=== PATIENT | male | born 1935 | race African-American/Black ===

== ENCOUNTER 2016-11-23 10:26 | Emergency (ER) | payer BC ==
--- NOTE | 2016-11-23 10:50 | EDPHY ---
H & P Stated Complaint: [facility] Fall Time Seen by Provider: 11/23/16 10:49 - Medical/Surgical History Hx Asthma: No Hx Chronic Respiratory Disease: No Hx Diabetes: Yes Hx Cardiac Disease: Yes Hx Renal Disease: Yes Hx Cirrhosis: No Hx Alcoholism: No Hx HIV/AIDS: No Hx Splenectomy or Spleen Trauma: No Other PMH: HTN, SLEEP APNEA, AAA REPAIR, PROSTATE CA, MULTIPLE MYELOMA, BOWEL RESECTION, 04/01 CARDIAC CATH, CATARACTS, 06/07 SUBTOTAL COLECTOMY.GOUT. HIP REPLACEMENT, DM, Hx Acute Kidney Fail (12/07) - Social History Smoking Status: Former smoker Constitutional: Initial Vital Signs Temperature (C) 36.9 C 11/23/16 10:42 Heart Rate 75 11/23/16 10:42 Respiratory Rate 14 11/23/16 10:42 Blood Pressure 117/81 H 11/23/16 10:42 O2 Sat (%) 90 L 11/23/16 10:42 O2 Delivery Mode Room Air Allergies/Adverse Reactions: No Known Allergies Allergy (Verified 04/09/12 22:38) Home Medications: Medication Instructions Recorded Atorvastatin Calcium [Lipitor 10 10 mg PO DAILY 08/10/12 mg (*)] Clopidogrel Bisulfate [Plavix (*)] 75 mg PO DAILY 08/10/12 Ketoconazole 2% [Nizoral 2% Cream 1 josiah TP HS 08/10/12 (*)] Oxybutynin Chloride [Ditropan] 10 mg PO DAILY 08/10/12 Tamsulosin HCl [Flomax 0.4 MG (*)] 0.4 mg PO HS 08/10/12 traMADol [Ultram 50 mg (*)] 50 mg PO QID PRN 08/10/12 Azelastine [Astelin] 1 sprays EACHNARE DAILY 09/27/13 Glucosamine Sulfate 2Kcl 1,500 mg PO DAILY 09/27/13 [Glucosamine] amLODIPine BESYLATE [Norvasc 10 mg 10 mg PO DAILY 09/27/13 (*)] Clonidine HCl 0.4 mg PO BID 12/11/14 Memantine HCl [Namenda Xr] 28 mg PO DAILY 12/11/14 Rivastigmine [Exelon 9.5mg/24 hrs] 1 each TD DAILY 12/11/14 metFORMIN HCL [Glucophage 500 mg 500 mg PO DAILY 12/11/14 (*)] Oxybutynin Chloride [Ditropan] 5 mg PO HS 12/12/14 Medical Decision Making ED Course/Re-evaluation: CHIEF COMPLAINT: Mechanical fall. HISTORY OF PRESENT ILLNESS: The patient is an 81-year-old male with a history of Alzheimer's who presents via EMS after falling onto his right side this morning. He was found lying on the floor by his family after falling. He was found awake and alert. He does not remember falling, probably due to baseline dementia. He denies loss of consciousness. He had difficulty walking after falling due to pain in the bilateral knees and hips. It is unclear why he fell today. REVIEW OF SYSTEMS: A 10 point review of systems was performed and is negative with the exception of the elements mentioned in the history of present illness. PHYSICAL EXAM: HR, BP, O2 Sat, RR. Temp noted General Appearance: Alert, well hydrated, appropriate, and non-toxic appearing. Head: Atraumatic without scalp tenderness or obvious injury Eyes: Pupils equal, round, reactive to light and accommodation, EOMI, no trauma , no injection. Ears: Clear bilaterally, no perforation, normal landmarks Nose: Atraumatic, no rhinorrhea, clear. Throat: There is no erythema or exudates, no lesions, normal tonsils, mucus membranes moist. Neck: Supple, 2+ carotid upstroke, nontender, no lymphadenopathy. Respiratory: No retractions, no distress, no wheezes, and no accessory muscle use. Lungs are clear to auscultation bilaterally. Cardiovascular: Regular rate and rhythm, no murmurs, rubs, or gallops. Bilateral carotid, radial, dorsalis pedis, and posterior tibial pulses intact. Good capillary refill all extremities. Gastrointestinal: Abdomen is soft, nontender, non-distended, no masses, no rebound, no guarding, no peritoneal signs. Musculoskeletal: Normal active ROM of all extremities, atraumatic. Neurological: Alert, appropriate, and interactive. The patient has normal DTRs and non-focal cranial nerves, motor, sensory, and cerebellar exam. Skin: No rashes, good turgor, no nodules on palpation. Past medical history: Hypertension, sleep apnea, AAA repair, prostate cancer, multiple myeloma, cataracts, gout, diabetes, acute kidney failure, bowel resection, colectomy, hip replacement. Past surgical history: Cardiac catheterization Family history:Non-contributory. Social history:Here with family. DIAGNOSTICS/PROCEDURES/CRITICAL CARE TIME: Study: CT of the head, c-spine, pelvis. Indication: Pain. Results: Negative. The study was read by the radiologist, Dr. Moreira. I viewed the images myself on the PACS system. Study: Left shoulder X-ray Indication: Trauma, pain Results: I viewed the images myself on the PACS system. My interpretation of the images is: surgical neck fracture. The radiologist interpretation is pending at the time of this dictation. DIFFERENTIAL DIAGNOSIS: The differential diagnosis includes but is not limited to pelvic fracture, femur fracture, intracranial injury, shoulder sprain, shoulder fracture. MEDICAL DECISION MAKING: This is an 81-year-old male with a history of Alzheimer's presenting via EMS after a fall this morning. He was found awake and alert on the floor by family members. He does not remember any of the accident and is unsure why he fell. He does describe pain in both hips and his left shoulder. I have ordered CTs of the head, cervical spine, and pelvis. An x-ray of the left should was obtained as well. 1316: The CT scans were reported to me negative by Dr. Moreira, radiology. I reassessed the patient at this time and conveyed these results to his family. Patient's stool returns c. Diff negative. - Data Points Laboratory Results: Laboratory Results 11/23/16 11:20 11/23/16 11:20 11/23/16 11/23/16 11/23/16 14:16 11:20 11:20 WBC RBC Hgb Hct MCV MCH MCHC RDW Plt Count MPV Neut % (Auto) Lymph % (Auto) [place] % (Auto) Eos % (Auto) Baso % (Auto) Nucleat RBC Rel Count Absolute Neuts (auto) Absolute Lymphs (auto) Absolute Monos (auto) Absolute Eos (auto) Absolute Basos (auto) Absolute Nucleated RBC Immature Gran % Immature Gran # PT 15.3 SEC H SEC (12.0-15.0) INR 1.21 H (0.83-1.16) APTT 33.3 SEC SEC (23.0-38.0) Sodium Potassium Chloride Carbon Dioxide Anion Gap BUN Creatinine Estimated GFR Glucose Calcium Creatine Kinase 115 IU/L IU/L (0-224) Urine Color NIKO Urine Appearance CLEAR Urine pH 5.0 (5.0-7.5) Ur Specific [place] 1.025 (1.002-1.030) Urine Protein 2+ H (NEGATIVE) Urine Ketones NEGATIVE (NEGATIVE) Urine Blood 1+ H (NEGATIVE) Urine Nitrate NEGATIVE (NEGATIVE) Urine Bilirubin NEGATIVE (NEGATIVE) Urine Urobilinogen NEGATIVE EU EU (0.2-1.0) Ur Leukocyte Esterase NEGATIVE (NEGATIVE) Urine RBC Pending Urine WBC Pending Ur Epithelial Cells Pending Ur Culture Indicated? Pending Urine Glucose NEGATIVE (NEGATIVE) C. difficile Tox (PCR) 11/23/16 11/23/16 11/23/16 11:20 11:20 11:00 WBC 13.94 10^3/uL H 10^3/uL (3.80-9.50) RBC 4.31 10^6/uL L 10^6/uL (4.40-6.38) Hgb 12.6 g/dL L g/dL (13.7-17.5) Hct 40.5 % % (40.0-51.0) MCV 94.0 fL fL (81.5-99.8) MCH 29.2 pg pg (27.9-34.1) MCHC 31.1 g/dL L g/dL (32.4-36.7) RDW 15.9 % H % (11.5-15.2) Plt Count 550 10^3/uL H 10^3/uL (150-400) MPV 10.5 fL fL (8.7-11.7) Neut % (Auto) 80.5 % H % (39.3-74.2) Lymph % (Auto) 8.2 % L % (15.0-45.0) [place] % (Auto) 7.7 % % (4.5-13.0) Eos % (Auto) 2.2 % % (0.6-7.6) Baso % (Auto) 0.9 % % (0.3-1.7) Nucleat RBC Rel Count 0.0 % % (0.0-0.2) Absolute Neuts (auto) 11.22 10^3/uL H 10^3/uL (1.70-6.50) Absolute Lymphs (auto) 1.15 10^3/uL 10^3/uL (1.00-3.00) Absolute Monos (auto) 1.08 10^3/uL H 10^3/uL (0.30-0.80) Absolute Eos (auto) 0.30 10^3/uL 10^3/uL (0.03-0.40) Absolute Basos (auto) 0.12 10^3/uL H 10^3/uL (0.02-0.10) Absolute Nucleated RBC 0.00 10^3/uL 10^3/uL (0-0.01) Immature Gran % 0.5 % % (0.0-1.1) Immature Gran # 0.07 10^3/uL 10^3/uL (0.00-0.10) PT INR APTT Sodium 149 mEq/L H mEq/L (134-144) Potassium 4.0 mEq/L mEq/L (3.5-5.2) Chloride 108 mEq/L mEq/L (97-110) Carbon Dioxide 27 mEq/l mEq/l (22-31) Anion Gap 14 mEq/L mEq/L (8-16) BUN 23 mg/dL mg/dL (7-23) Creatinine 1.5 mg/dL H mg/dL (0.7-1.3) Estimated GFR 45 Glucose 118 mg/dL H mg/dL (70-100) Calcium 10.2 mg/dL mg/dL (8.5-10.4) Creatine Kinase Urine Color Urine Appearance Urine pH Ur Specific [place] Urine Protein Urine Ketones Urine Blood Urine Nitrate Urine Bilirubin Urine Urobilinogen Ur Leukocyte Esterase Urine RBC Urine WBC Ur Epithelial Cells Ur Culture Indicated? Urine Glucose C. difficile Tox (PCR) NEGATIVE (NEGATIVE) Departure - Departure Disposition: Home, Routine, Self-Care Clinical Impression: Contusion, hip Qualifiers: Encounter type: initial encounter Laterality: unspecified laterality Qualified Code(s): S70.00XA - Contusion of unspecified hip, initial encounter Fall Qualifiers: Encounter type: initial encounter Qualified Code(s): W19.XXXA - Unspecified fall, initial encounter Condition: Good Instructions: Hip Contusion (ED), Fall Prevention (ED) Additional Instructions: Follow up with your primary care provider this week for reevaluation. Return to the emergency department for any serious worsening of condition. Referrals: Scott Solo MD [Primary Care Provider] - As per Instructions Report Scribed for: Ben Herring Report Scribed by: En Houston Date of Report: 11/23/16 Time of Report: 13:17
--- NOTE | 2016-11-23 10:58 | CPEKG ---
Heart Rate: 75 RR Interval: 800 P-R Interval: 184 QRSD Interval: 144 QT Interval: 428 QTC Interval: 479 P [place]: 42 QRS [place]: -82 T Wave [place]: 56 EKG Severity - ABNORMAL ECG - EKG Impression: SINUS RHYTHM EKG Impression: MULTIPLE ATRIAL PREMATURE COMPLEXES EKG Impression: RBBB AND LAFB EKG Impression: LEFT VENTRICULAR HYPERTROPHY Electronically Signed By: Ben Herring 23-Nov-2016 14:37:01
[2016-11-23 11:34] LABS: % IMMATURE GRANULYOCYTES 0.5 % (0.0-1.1); ABSOLUTE IMMATURE GRANULOCYTES 0.07 10^3/uL (0.00-0.10); ADD DIFF? NO; ADD MORPH? NO; ADD SCAN? NO; ATYPICAL LYMPHOCYTE FLAG 0 (0-99); FRAGMENT RBC FLAG 20 (0-99); HEMATOCRIT 40.5 % (40.0-51.0); HEMOGLOBIN 12.6 g/dL (13.7-17.5); LEFT SHIFT FLG 0 (0-99); LIPEMIA HEMOLYSIS FLAG 80 (0-99); MEAN CELL HEMOGLOBIN 29.2 pg (27.9-34.1); MEAN CELL HEMOGLOBIN CONCENTR. 31.1 g/dL (32.4-36.7); MEAN PLATELET VOLUME 10.5 fL (8.7-11.7); PLATELET CLUMPS FLAG 0 (0-99); PLATELET COUNT 550 10^3/uL (150-400); RED BLOOD CELL COUNT 4.31 10^6/uL (4.40-6.38); RED CELL DISTRIBUTION WIDTH 15.9 % (11.5-15.2)
[2016-11-23 11:49] LABS: ANION GAP 14 mEq/L (8-16); CALCIUM 10.2 mg/dL (8.5-10.4); CARBON DIOXIDE 27 mEq/l (22-31); CHLORIDE 108 mEq/L (97-110); CREATININE 1.5 mg/dL (0.7-1.3); GLOMERULAR FILTRATION RATE 45; GLUCOSE 118 mg/dL (70-100); SODIUM 149 mEq/L (134-144)
[2016-11-23 12:15] LABS: INR 1.21 (0.83-1.16); PROTIME(PATIENT) 15.3 SEC (12.0-15.0)
[2016-11-23 12:16] LABS: APTT 33.3 SEC (23.0-38.0)
[2016-11-23 14:45] LABS: COLOR AMBER; LEUKOCYTE ESTERASE,URINE NEGATIVE (NEGATIVE); NITRITE,URINE NEGATIVE (NEGATIVE)
[2016-11-23 15:03] LABS: MUCUS TRACE /lpf (NONE-1+)
[2016-11-23 15:50] VITALS: BP 150/87; PULSE 78; RESP 17; TEMP 98.1; O2SAT 96
== END 2016-11-23 15:50 | disposition home or self-care (01) ==
LOC: EDUNIT#
DX: S70.02XA Contusion of left hip, initial encounter (principal); S70.01XA Contusion of right hip, initial encounter; I10 Essential (primary) hypertension; E11.9 Type 2 diabetes mellitus without complications; Z85.46 Personal history of malignant neoplasm of prostate; Z87.891 Personal history of nicotine dependence; W18.39XA Other fall on same level, initial encounter

== ENCOUNTER 2016-11-23 23:33 | Observation (INO) | payer BC ==
[2016-11-24 00:05] LABS: % IMMATURE GRANULYOCYTES 0.6 % (0.0-1.1); ABSOLUTE IMMATURE GRANULOCYTES 0.08 10^3/uL (0.00-0.10); ADD DIFF? NO; ADD MORPH? NO; ADD SCAN? NO; ATYPICAL LYMPHOCYTE FLAG 0 (0-99); FRAGMENT RBC FLAG 10 (0-99); HEMATOCRIT 40.9 % (40.0-51.0); HEMOGLOBIN 12.3 g/dL (13.7-17.5); LEFT SHIFT FLG 0 (0-99); LIPEMIA HEMOLYSIS FLAG 80 (0-99); MEAN CELL HEMOGLOBIN 28.6 pg (27.9-34.1); MEAN CELL HEMOGLOBIN CONCENTR. 30.1 g/dL (32.4-36.7); MEAN CELL VOLUME 95.1 fL (81.5-99.8); MEAN PLATELET VOLUME 10.6 fL (8.7-11.7); PLATELET CLUMPS FLAG 0 (0-99); PLATELET COUNT 542 10^3/uL (150-400); RED CELL DISTRIBUTION WIDTH 15.9 % (11.5-15.2)
--- NOTE | 2016-11-24 00:08 | CPEKG ---
Heart Rate: 65 RR Interval: 923 P-R Interval: 188 QRSD Interval: 142 QT Interval: 444 QTC Interval: 462 P [place]: 58 QRS [place]: -81 T Wave [place]: 43 EKG Severity - ABNORMAL ECG - EKG Impression: SINUS RHYTHM EKG Impression: RBBB AND LAFB EKG Impression: LEFT VENTRICULAR HYPERTROPHY Electronically Signed By: Annamarie Jacinto 25-Nov-2016 07:08:30
[2016-11-24] MEDS ORDERED: NS 1,000 ML IV ONE (00:15)
[2016-11-24 00:17] LABS: ALANINE AMINOTRANSFERASE 37 IU/L (21-72); ALKALINE PHOSPHATASE 90 IU/L (38-126); ANION GAP 12 mEq/L (8-16); ASPARTATE AMINOTRANSFERASE 46 IU/L (17-59); BILIRUBIN,TOTAL 0.8 mg/dL (0.1-1.4); CARBON DIOXIDE 29 mEq/l (22-31); CHLORIDE 110 mEq/L (97-110); CREATININE 1.5 mg/dL (0.7-1.3); GLOMERULAR FILTRATION RATE 45; GLUCOSE 141 mg/dL (70-100); POTASSIUM 4.5 mEq/L (3.5-5.2); SODIUM 151 mEq/L (134-144); TOTAL PROTEIN 7.5 g/dL (6.3-8.2)
[2016-11-24 00:29] LABS: TROPONIN I 0.061 ng/mL (0-0.034)
--- NOTE | 2016-11-24 00:30 | EDPHY ---
H & P Stated Complaint: unwitnessed fall - unk if +loc, hx of dementia, on plavix Time Seen by Provider: 11/23/16 23:46 HPI/ROS: HPI The patient presents with fall which occurred just prior to arrival. He was at home, using his walker and he ran into the dog bed, falling to the ground when his daughter was not looking. He is complaining of pain throughout his right side ever since. The pain is achy and worse with movement. He had another fall earlier today and was seen here. He had CT scan of his head, C-spine, pelvis and x-ray of his right shoulder. These were all unremarkable he was discharged home with his family. He suffers from dementia, he does not usually know the date but knows where he is at. He is able to have some conversations with family members. His family wonders if he has been eating much lately. REVIEW OF SYSTEMS Constitutional: No fever, no chills. Eyes: No discharge. ENT: No sore throat. Cardiovascular: No chest pain, no palpitations. Respiratory: No cough, no shortness of breath. Gastrointestinal: No abdominal pain, no vomiting. Genitourinary: No hematuria. Musculoskeletal: No back pain. Skin: No rashes. Neurological: No headache. PMHx: See below Soc Hx: Lives at home with his family PHYSICAL General Appearance: tired appearing, no distress Eyes: Pupils equal and round no pallor or injection ENT, Mouth: Mucous membranes dry Respiratory: There are no retractions, lungs are clear to auscultation Cardiovascular: Regular rate and rhythm, holosystolic murmur Gastrointestinal: Abdomen is soft and non-tender, no masses, bowel sounds normal Neurological: A&O, moves all extremities Skin: Warm and dry, no rashes Musculoskeletal: Neck is supple non tender, left hip with some bruising and ulcerations which appear old Extremities: symmetrical, full range of motion Psychiatric: Patient is oriented X 1, there is no agitation Source: Patient, Family, EMS - Medical/Surgical History Hx Asthma: No Hx Chronic Respiratory Disease: No Hx Diabetes: Yes Hx Cardiac Disease: Yes Hx Renal Disease: Yes Hx Cirrhosis: No Hx Alcoholism: No Hx HIV/AIDS: No Hx Splenectomy or Spleen Trauma: No Other PMH: HTN, SLEEP APNEA, AAA REPAIR, PROSTATE CA, MULTIPLE MYELOMA, BOWEL RESECTION, 04/01 CARDIAC CATH, CATARACTS, 06/07 SUBTOTAL COLECTOMY.GOUT. HIP REPLACEMENT, DM 2, Hx Acute Kidney Fail (12/07) - Social History Smoking Status: Former smoker Constitutional: Initial Vital Signs Temperature (C) 36.6 C 11/23/16 23:39 Heart Rate 72 11/23/16 23:39 Respiratory Rate 16 11/23/16 23:39 Blood Pressure 117/69 11/23/16 23:39 O2 Sat (%) 93 11/23/16 23:39 O2 Delivery Mode Nasal Cannula O2 (L/minute) 2 Allergies/Adverse Reactions: No Known Allergies Allergy (Verified 11/23/16 23:42) Home Medications: Medication Instructions Recorded Atorvastatin Calcium [Lipitor 10 10 mg PO DAILY 08/10/12 mg (*)] Clopidogrel Bisulfate [Plavix (*)] 75 mg PO DAILY 08/10/12 Ketoconazole 2% [Nizoral 2% Cream 1 josiah TP HS 08/10/12 (*)] Oxybutynin Chloride [Ditropan] 10 mg PO DAILY 08/10/12 Tamsulosin HCl [Flomax 0.4 MG (*)] 0.4 mg PO HS 08/10/12 traMADol [Ultram 50 mg (*)] 50 mg PO QID PRN 08/10/12 Azelastine [Astelin] 1 sprays EACHNARE DAILY 09/27/13 Glucosamine Sulfate 2Kcl 1,500 mg PO DAILY 09/27/13 [Glucosamine] amLODIPine BESYLATE [Norvasc 10 mg 10 mg PO DAILY 09/27/13 (*)] Clonidine HCl 0.4 mg PO BID 12/11/14 Memantine HCl [Namenda Xr] 28 mg PO DAILY 12/11/14 Rivastigmine [Exelon 9.5mg/24 hrs] 1 each TD DAILY 12/11/14 metFORMIN HCL [Glucophage 500 mg 500 mg PO DAILY 12/11/14 (*)] Oxybutynin Chloride [Ditropan] 5 mg PO HS 12/12/14 Allopurinol 100 MG (*) 11/23/16 Medical Decision Making - Diagnostics EKG Interpretation: EKG: Complete interpretation has been separately recorded in the [employer] archive. Summary impression: Right bundle-branch block and left anterior fascicular block unchanged from prior EKG Imaging: Chest x-ray one view shows prominent aortic knob, interpreted by me, radiology interpretation is pending. ED Course/Re-evaluation: The patient was given a L of normal saline in the emergency room. He continued to feel weak and was unable to get out of bed. Labs were checked and did reveal elevated BUN and creatinine which could be a result of dehydration which may be contributing to his symptoms. His other tests were unremarkable. After discussion with the patient's daughters, we decided to admit the patient to the hospital. Does not seem safe for discharge home given these frequent falls. Have discussed the case with the hospitalist Dr. Devante Patel who will come to the emergency room to evaluate the patient. Differential Diagnosis: This is a 81-year-old male with multiple medical problems including dementia who lives at home with his daughter who presents with recurrent falls today. These seem to be mechanical in or not associated with any loss of consciousness. Differential diagnosis includes dehydration, weakness related to underlying electrolyte disturbance, anemia, infection. - Data Points Laboratory Results: Laboratory Results 11/23/16 23:55 11/23/16 23:55 11/23/16 11/23/16 23:55 23:55 WBC 13.36 10^3/uL H 10^3/uL (3.80-9.50) RBC 4.30 10^6/uL L 10^6/uL (4.40-6.38) Hgb 12.3 g/dL L g/dL (13.7-17.5) Hct 40.9 % % (40.0-51.0) MCV 95.1 fL fL (81.5-99.8) MCH 28.6 pg pg (27.9-34.1) MCHC 30.1 g/dL L g/dL (32.4-36.7) RDW 15.9 % H % (11.5-15.2) Plt Count 542 10^3/uL H 10^3/uL (150-400) MPV 10.6 fL fL (8.7-11.7) Neut % (Auto) 75.6 % H % (39.3-74.2) Lymph % (Auto) 10.0 % L % (15.0-45.0) [place] % (Auto) 9.5 % % (4.5-13.0) Eos % (Auto) 3.5 % % (0.6-7.6) Baso % (Auto) 0.8 % % (0.3-1.7) Nucleat RBC Rel Count 0.0 % % (0.0-0.2) Absolute Neuts (auto) 10.10 10^3/uL H 10^3/uL (1.70-6.50) Absolute Lymphs (auto) 1.33 10^3/uL 10^3/uL (1.00-3.00) Absolute Monos (auto) 1.27 10^3/uL H 10^3/uL (0.30-0.80) Absolute Eos (auto) 0.47 10^3/uL H 10^3/uL (0.03-0.40) Absolute Basos (auto) 0.11 10^3/uL H 10^3/uL (0.02-0.10) Absolute Nucleated RBC 0.00 10^3/uL 10^3/uL (0-0.01) Immature Gran % 0.6 % % (0.0-1.1) Immature Gran # 0.08 10^3/uL 10^3/uL (0.00-0.10) Sodium 151 mEq/L H mEq/L (134-144) Potassium 4.5 mEq/L mEq/L (3.5-5.2) Chloride 110 mEq/L mEq/L (97-110) Carbon Dioxide 29 mEq/l mEq/l (22-31) Anion Gap 12 mEq/L mEq/L (8-16) BUN 23 mg/dL mg/dL (7-23) Creatinine 1.5 mg/dL H mg/dL (0.7-1.3) Estimated GFR 45 Glucose 141 mg/dL H mg/dL (70-100) Calcium 10.0 mg/dL mg/dL (8.5-10.4) Total Bilirubin 0.8 mg/dL mg/dL (0.1-1.4) AST 46 IU/L IU/L (17-59) ALT 37 IU/L IU/L (21-72) Alkaline Phosphatase 90 IU/L IU/L (38-126) Troponin I 0.061 ng/mL H ng/mL (0-0.034) Total Protein 7.5 g/dL g/dL (6.3-8.2) Albumin 4.0 g/dL g/dL (3.5-5.0) Medications Given: Discontinued Medications Sodium Chloride (Ns) 1,000 mls @ 0 mls/hr IV ONCE ONE PRN Reason: Wide Open Stop: 11/24/16 00:16 Last Admin: 11/24/16 00:40 Dose: 1,000 mls Departure - Departure Disposition: [facility] Inpatient Acute Clinical Impression: Weakness, Dehydration Falls Qualifiers: Encounter type: initial encounter Qualified Code(s): W19.XXXA - Unspecified fall, initial encounter Condition: Fair
[2016-11-24] MEDS ORDERED: ONDANSETRON DISINTEGRATING 4 MG TAB PO PRN (02:06)
[2016-11-24] MEDS ORDERED: ONDANSETRON 4 MG/2 ML VIAL IVP PRN (02:06)
[2016-11-24] MEDS ORDERED: NS 1,000 ML IV SCH (02:15)
--- NOTE | 2016-11-24 02:55 | GHP ---
DATE OF ADMISSION: 11/24/2016 HISTORY OF PRESENT ILLNESS: The patient is a pleasant 81-year-old gentleman with dementia, coronary disease, presents with 2 falls today. He was seen in the ER earlier and large workup was negative for fracture, medical causes, so he was returned home. Returns with the second fall today. History is largely obtained from the daughter who is present at bedside as the patient is sleepy and has so me fairly significant dementia. They said he eats and drinks poorly. He is not drink alcohol. He had a mechanical fall. He tripped over something today. He has had occasional liquid stool. It wa s C negative earlier today. He does have a history of C difficile in the past. His family notes no focal neurologic symptoms. No diaphoresis. No fever. It sounds like he sleeps a lot of the days, up at night. He eats poorly. His daughter who is the MV-POA confirms his full code status. REVIEW OF SYSTEMS: Complete 10-point review of systems conducted, negative except as noted in the H PI. PAST MEDICAL HISTORY: 1. C diff with a couple of episodes, last in September 2013. 2. History of GI bleed with diverticulosis status post colectomy. 3. Hypertension. 4. Hyperlipidemia. 5. Chronic kidney disease followed by [facility]. 6. COPD. 7. History of SBO. 8. Type 2 diabetes on oral medicines. 9. Moderate aortic stenosis. 10. Multiple myeloma, in remission. 11. History of AAA repair. 12. Iliac aneurysm status post coiling. ALLERGIES: He has no known drug allergies. HOME MEDICATIONS: Unreconciled list is: Tramadol, metformin, amlodipine, tamsulosin, rivastigmine, oxybutynin, memantine, ketoconazole, glucosamine, clopidogrel, clonidine, azelastine, atorvastatin. SOCIAL HISTORY: Full code. Lives with his daughter. There is no alcohol. Quit smoking 30 years a go. FAMILY HISTORY: Daughter is present at the bedside. Healthy. PHYSICAL EXAM: GENERAL: Lying flat, sleeping but arousable. VITALS: Temp 36.8, blood pressure 10 6/61, pulse 54, breathing 18 times a minute, 96 on 2 L. HEENT: Sclerae anicteric. Oropharynx cortney r. Mucous membranes moist. NECK: Supple without lymphadenopathy or JVD. LUNGS: Clear to auscult ation bilaterally. HEART: S1, S2. A systolic murmur. ABDOMEN: Soft, nontender, nondistended. L OWER EXTREMITIES: Without edema. Calves nontender. SKIN: Without rash. NEUROLOGIC: Limited by his sleepiness but nonfocal. LABORATORY DATA: Labs today, white count 13.3, hematocrit 40.9, platelets are 542,000. INR is 1.2. Sodium 151, potassium 4.5, chloride 110, bicarb 29, BUN 23, creatinine 1.5, glucose 141, troponin 0.061. I have reviewed his past troponins. This is about where he lives or even lower than usual. C diff was negative earlier today. Chest x-ray interpreted by me shows no acute cardiopulmonary disease. He had a shoulder x-ray, pelv is CT, head CT and C-spine CT. All of which were unremarkable. EKG interpreted by me shows sinus at 65 with left axis deviation, left anterior fascicular block. R ight bundle branch block. This is not new when compared with the EKG from November of 2014. I have di scussed the case with Dr. Annamarie Jacinto. ASSESSMENT/PLAN: An 81-year-old gentleman with dementia, aortic stenosis with falls, elevated creat inine. 1. Fall. I suspect these are mechanical in nature although I cannot rule out orthostatic falls. He does have aortic stenosis with poor p.o. intake and blood pressure medicine. I will check some ort hostatic vital signs in the morning and follow his blood pressures. They are softer here than they typically are. I wonder if we need to pull back on some of his medicines. Will have PT and OT see him. Workup for fractures and traumatic sequelae earlier today were unremarkable. 2. Acute kidney injury. I believe this is pre renal. Will give him IV fluids and follow. 3. Elevated troponin. He has a chronically indeterminate troponin this today in the set ting. His EKG is unchanged. We will follow. We will repeat this troponin now and in the morning a nd follow. I do not think this represents acute coronary syndrome but we will follow. 4. Code status. The patient is full code. Ironically, his daughter is an end of life researcher i n the Division of Ger[facility] [facility] and is merely just continuing his wishes. 5. Diabetes. Will continue his orals. 6. Prophylaxis. Pharmacologic prophylaxis indicated if in the hospital longer than 24 hours, for n ow we will hold. 7. Disposition. Observation status. 8. Aortic stenosis. This is mild. If he remains orthostatic then echocardiogram should perhaps be repeated. I have not ordered that now. His freight forwarder is Dr. Duran. /[id number]/MODL
[2016-11-24] MEDS ORDERED: ACETAMINOPHEN 325 MG TAB PO SCH (06:00)
[2016-11-24] MEDS: ACETAMINOPHEN 500 MG TAB PO SCH ×4 (06:10→21:04)
[2016-11-24 06:39] LABS: % IMMATURE GRANULYOCYTES 0.6 % (0.0-1.1); ABSOLUTE IMMATURE GRANULOCYTES 0.07 10^3/uL (0.00-0.10); ADD DIFF? NO; ADD MORPH? NO; ADD SCAN? NO; ATYPICAL LYMPHOCYTE FLAG 0 (0-99); FRAGMENT RBC FLAG 10 (0-99); HEMATOCRIT 36.9 % (40.0-51.0); HEMOGLOBIN 11.1 g/dL (13.7-17.5); LEFT SHIFT FLG 0 (0-99); LIPEMIA HEMOLYSIS FLAG 80 (0-99); MEAN CELL HEMOGLOBIN 28.8 pg (27.9-34.1); MEAN CELL HEMOGLOBIN CONCENTR. 30.1 g/dL (32.4-36.7); MEAN CELL VOLUME 95.8 fL (81.5-99.8); MEAN PLATELET VOLUME 10.6 fL (8.7-11.7); PLATELET CLUMPS FLAG 10 (0-99); PLATELET COUNT 458 10^3/uL (150-400); RED BLOOD CELL COUNT 3.85 10^6/uL (4.40-6.38); RED CELL DISTRIBUTION WIDTH 15.9 % (11.5-15.2)
[2016-11-24 06:55] LABS: ANION GAP 9 mEq/L (8-16); CARBON DIOXIDE 27 mEq/l (22-31); CHLORIDE 112 mEq/L (97-110); CREATININE 1.3 mg/dL (0.7-1.3); GLOMERULAR FILTRATION RATE 53; GLUCOSE 115 mg/dL (70-100); POTASSIUM 4.7 mEq/L (3.5-5.2); SODIUM 148 mEq/L (134-144)
[2016-11-24 07:05] LABS: TROPONIN I 0.059 ng/mL (0-0.034)
[2016-11-24 09:20] LABS: COLOR YELLOW; LEUKOCYTE ESTERASE,URINE NEGATIVE (NEGATIVE); NITRITE,URINE NEGATIVE (NEGATIVE)
[2016-11-24 09:35] LABS: MUCUS TRACE /lpf (NONE-1+)
[2016-11-24] MEDS ORDERED: ACETAMINOPHEN 500 MG TAB PO PRN (12:17)
[2016-11-24] MEDS ORDERED: HYDROCODONE/APAP 5/325 TAB PO PRN (12:17)
[2016-11-24] MEDS: 1/2 NS 1,000 ML IV SCH ×2 (12:53→23:32)
--- NOTE | 2016-11-24 15:36 | HOSPPROG ---
Hospitalist Progress Note Assessment/Plan: 81-year-old male presents emergency room with recent falls. # falls PT OT eval likely secondary dehydration continue eval # acute kidney injury responding IV fluids #Hypernatremia likely secondary dehydration # elevated troponin reviewed with daughter discontinue any further cardiac evaluation at this time #Diabetes Stable # aortic stenosis Appears stable # disposition Anticipate patient will discharge in 1-2 days pending further evaluation and therapy evaluation Subjective: up in occupational therapy. To the bathroom. No specific complaints. Objective: Vital Signs Temp Pulse Resp BP Pulse Ox 36.6 C 65 20 110/59 L 91 L 11/24/16 11:23 11/24/16 11:23 11/24/16 11:23 11/24/16 11:23 11/24/16 11:23 Laboratory Results 11/24/16 06:12 11/24/16 06:12 11/23/16 11/24/16 11/25/16 05:59 05:59 05:59 Intake Total 1286 Balance 1286 - Physical Exam Constitutional: not in pain, chronically ill appearing Eyes: PERRL, anicteric sclera Ears, Nose, Mouth, Throat: moist mucous membranes, hearing normal Cardiovascular: No JVD, No edema Respiratory: no respiratory distress, reduced air movement Gastrointestinal: No tenderness, No ascites Skin: warm, normal color Musculoskeletal: no joint effusions, generalized weakness Psychiatric: not anxious, not encephalopathic ICD10 Worksheet Patient Problems: Problems Problem Status Onset Diabetes mellitus type 2 Active Essential hypertension Active Multiple myeloma Active Neoplasm of prostate Active Aneurysm of ascending aorta Active Facial palsy Active Pain management Active Clostridium difficile infection Acute Weakness Acute Falls Acute Dehydration Acute
[2016-11-24] MEDS ORDERED: traMADol 50 MG TAB PO PRN (16:00)
[2016-11-24] MEDS ORDERED: OXYBUTYNIN CHLORIDE 5 MG TAB PO SCH (21:00)
[2016-11-24] MEDS ORDERED: TAMSULOSIN HCL 0.4 MG CAP PO SCH (21:00)
[2016-11-25] MEDS: ACETAMINOPHEN 500 MG TAB PO SCH (05:44)
[2016-11-25 07:44] VITALS: BP 168/84; PULSE 63; RESP 18; TEMP 98.3; O2SAT 98
[2016-11-25] MEDS: 1/2 NS 1,000 ML IV SCH (08:52)
[2016-11-25] MEDS ORDERED: Memantine Hcl [Namenda Xr] 28 MG PO SCH (09:00)
[2016-11-25] MEDS ORDERED: ATORVASTATIN CALCIUM 20 MG TAB PO SCH (09:00)
[2016-11-25] MEDS ORDERED: OXYBUTYNIN CHLORIDE 5 MG TAB PO SCH (09:00)
[2016-11-25] MEDS ORDERED: ALLOPURINOL 100 MG TAB PO SCH (09:00)
[2016-11-25] MEDS ORDERED: metFORMIN HCL 500 MG TAB PO SCH (09:00)
[2016-11-25] MEDS ORDERED: CLOPIDOGREL BISULFATE 75 MG TAB PO SCH (09:00)
[2016-11-25] MEDS ORDERED: GLUCOSAMINE SULF 500 MG CAP PO SCH (09:00)
--- NOTE | 2016-11-25 10:54 | PDIAF ---
- Diagnosis Diagnosis: dehydration Code Status: Full Code - Medication Management Discharge Medications: Medications to Continue on Transfer Acetaminophen [Tylenol ES 500 mg (*)] 1,000 mg PO DAILY PRN 11/24/16 [Last Taken Unknown] Allopurinol [Allopurinol 100 MG (*)] 100 mg PO DAILY 11/24/16 [Last Taken ] Amlodipine Besylate 10 mg PO DAILY 11/24/16 [Last Taken 11/23/16] Atorvastatin Calcium [Lipitor 20 mg (*)] 20 mg PO DAILY 11/24/16 [Last Taken ] Clopidogrel Bisulfate [Plavix (*)] 75 mg PO DAILY 11/24/16 [Last Taken 11/23/16] Glucosamine Sulfate [Glucosamine Sulfate 500 MG (*)] 1,500 mg PO DAILY 11/24/16 [Last Taken 11/23/16] Hydrocodone/Acetaminophen [[place] 5/325 (*)] 1 tab PO HS PRN 11/24/16 [Last Taken Unknown] Memantine HCl [Namenda Xr] 28 mg PO DAILY 11/24/16 [Last Taken 11/23/16] Oxybutynin Chloride 5 mg PO HS 11/24/16 [Last Taken 11/22/16] Oxybutynin Chloride 10 mg PO DAILY 11/24/16 [Last Taken 11/23/16] Tamsulosin HCl [Flomax 0.4 MG (*)] 0.4 mg PO HS 11/24/16 [Last Taken 11/22/16] clonIDINE [Catapres (*)] 0.4 mg PO BID 11/24/16 [Last Taken 11/23/16 08:00] metFORMIN HCL [Glucophage 500 mg (*)] 500 mg PO DAILY 11/24/16 [Last Taken 11/23] traMADol [Ultram 50 mg (*)] 50 mg PO DAILY@1600 PRN 11/24/16 [Last Taken Unknown ] Discharge Medications: Refer to the Discharge Home Medication list for PRN reason. PICC Care - Routine: N/A - Orders Services needed: Home Care, Registered Nurse, Physical Therapy, Occupational Therapy Home Care Face to Face: I certify that this patient was under my care and that I had the required [id number] encounter meeting the encounter requirements on the discharge day. My findings support the fact that the patient is homebound as defined in CMS Chapter 7 Medicare Benefits Manual 30.1.1, The condition of the patient is such that there exists a normal inability to leave home and consequently, leaving home would require a considerable and taxing effort. - Follow Up Care Current Providers and Referrals: Scott Solo MD [Primary Care Provider] - As per Instructions
--- NOTE | 2016-11-25 15:31 | GDS ---
DISCHARGE DIAGNOSES: 1. Falls. 2. Dehydration. 3. Generalized weakness. 4. Acute kidney injury. 5. Indeterminate troponin. 6. Diabetes. 7. History of aortic stenosis. PHYSICAL EXAM: GENERAL: The patient is alert. VITAL SIGNS: Afebrile at 36.8. Pulse is 63. Resp iratory rate is 18. Blood pressure is 168/84. He is saturating 98% on 2 L. I have seen and evalua avinash the patient on the day of discharge. HOSPITAL COURSE: The patient is an 81-year-old male who presented to the emergency room with compla ints of multiple falls. He was evaluated and diagnosed with: 1. Dehydration. During this hospitalization, the patient was hydrated with IV fluid, and he respon ded well and appears to be stronger today at the time of disposition. He also was evaluated by Phys ical Therapy as well as Occupational Therapy. It was recommended that he have home health care in t he outpatient setting. 2. Acute kidney injury. This is secondary to prerenal dehydration. He has responded well to IV fl uids. 3. Indeterminate troponin. The patient has had this in the past. After a discussion with the mariana ent's daughter, it was decided to not have any further troponin evaluation or cardiac evaluation. 4. Diabetes. He was continued on his oral medications. 5. History of aortic stenosis. This appears to be stable. DISPOSITION: The patient will be discharged home to his normal residence with his daughter and home health care. He will follow up in the outpatient setting with his primary care physician, Dr. Joel iyer. Home health care has been arranged, RN, PT, OT. DISCHARGE MEDICATIONS: Please refer to EMR form. I have not discontinued the patient's previously prescribed home medications. There are no pending studies. /[id number]/MODL
== END 2016-11-25 12:12 | disposition home health service (06) ==
LOC: EDUNIT# → F3E 11-24 03:10
PROVIDERS: ADMIT Internal Medicine; ATTEND Internal Medicine
DX: E86.0 Dehydration (principal); Z91.81 History of falling; N17.9 Acute kidney failure, unspecified; R53.1 Weakness; E11.9 Type 2 diabetes mellitus without complications; F03.90 Unspecified dementia, unspecified severity, without behavioral disturbance, psychotic disturbance, mood disturbance, and anxiety; Z90.49 Acquired absence of other specified parts of digestive tract; J44.9 Chronic obstructive pulmonary disease, unspecified; Z79.84 Long term (current) use of oral hypoglycemic drugs; I70.0 Atherosclerosis of aorta
CPT/HCPCS: 71010; 73090; 93005; 96360; 97161; 97166; 97535; 99285; G0378

== ENCOUNTER → 2017-01-25 | Outpatient (CLI) | payer BC | LOC: FIMAGING 16:34 | PROVIDERS: ATTEND Nurse Practitioner | DX: I71.2 Thoracic aortic aneurysm, without rupture (principal); I72.3 Aneurysm of iliac artery; R93.5 Abnormal findings on diagnostic imaging of other abdominal regions, including retroperitoneum; N28.1 Cyst of kidney, acquired; Z85.79 Personal history of other malignant neoplasms of lymphoid, hematopoietic and related tissues; Z85.46 Personal history of malignant neoplasm of prostate ==